=== PATIENT | female | born 1985 | race Caucasian/White ===

== ENCOUNTER 2018-04-01 11:26 | Outpatient (REF) | payer MEDICAID, SELFPAY ==
[2018-04-01 22:13] LABS: Cholesterol 107 mg/dL (50-200); HDL Cholesterol 56 mg/dL (40-60); LDL CHOLESTEROL 46 mg/dL (<100); TSH 2.54 uIU/mL (0.358-3.74)
[2018-04-01 22:15] LABS: Hemoglobin A1C 5.5 % (4.5-6.2)
[2018-04-01 22:53] LABS: Triglyceride < 25 mg/dL (30-150)
[2018-04-04 09:25] LABS: HIV-1/2 Ag & Ab Screen Negative (NEGAT)
[2018-04-04 09:27] LABS: Hepatitis C Ab w Rflx HCV PCR Negative (NEGAT)
[2018-04-04 12:10] LABS: Syphilis Serology (RPR) Negative (Negative)
[2018-04-05 13:48] LABS: Chlamydia Result Negative; GC Result Negative; Specimen Description vaginal
== END 2018-04-01 11:46 ==
LOC: NCHCN 11:26
PROVIDERS: PCP Nurse Practitioner Family; Visit Provider Nurse Practitioner Family
DX: E66.9 Obesity, unspecified (principal); Z11.3 Encounter for screening for infections with a predominantly sexual mode of transmission; Z11.4 Encounter for screening for human immunodeficiency virus [HIV]; Z13.1 Encounter for screening for diabetes mellitus; Z11.59 Encounter for screening for other viral diseases; Z13.220 Encounter for screening for lipoid disorders; Z13.29 Encounter for screening for other suspected endocrine disorder; Z00.00 Encounter for general adult medical examination without abnormal findings
CPT/HCPCS: 80061; 83721; 86803; 87389; 87491; 87591; 83036; 84443; 86592

== ENCOUNTER 2019-12-26 16:20 | Outpatient (REF) | payer MEDICAID, SELFPAY ==
--- NOTE | 2019-12-26 16:20 | PAPFT_PTH ---
PATIENT: Sonia Bradshaw LOC: [facility]#:[id number] AGE/SX: 34/F ROOM: RE12/26/[address]: Sonia Coello : 1985 BED: DIS: 12/26/2019 SPEC #: [id number] RECD: 12/27/19 13:03 STATUS: DIOR REJayden #: [id number] RAMIRO: 12/26/19 16:[address]: Sonia Cisse DEPT: [facility] Cytology RECD BY: Estephania Mccord Tissues: 1 - CX/ENDOCX FOR PAP SMEARS Procedures: PAP THIN PREP/[facility] Screening HPV DNA PROBE Comments: [id number] (CHLAMYDIA/GC)
[2019-12-28 15:51] LABS: Chlamydia Result Negative (Negative); GC Result Negative (Negative)
== END 2019-12-26 16:40 ==
LOC: NCHCN 16:20
PROVIDERS: PCP Nurse Practitioner Family; Visit Provider Nurse Practitioner Family
DX: R87.610 Atypical squamous cells of undetermined significance on cytologic smear of cervix (ASC-US) (principal); R87.810 Cervical high risk human papillomavirus (HPV) DNA test positive
CPT/HCPCS: 87491; 87591; 88142; 87624

== ENCOUNTER 2021-10-17 14:43 | Outpatient (REF) | payer MEDICAID, SELFPAY ==
[2021-10-17 20:23] LABS: HCT 38.7 % (36.0-46.0); HGB 12.8 g/dL (11.2-15.7); MCH 31.1 pg (27.0-33.0); MCHC 33.1 % (32.0-36.0); MCV 94 fL (80-95); MPV 11.9 fL (8.0-11.0); Platelet Count 219 10^3/uL (130-400); RBC 4.12 10^6/uL (3.93-5.22); RDW 11.8 % (11.7-14.6); RDW-SD 40.6 fL; WBC 5.56 10^3/uL (4.4-10.8)
[2021-10-17 20:30] LABS: Hemoglobin A1C 5.5 % (<5.7)
[2021-10-17 20:32] LABS: ALT 33 U/L (14-59); AST < 5 U/L (15-37); Albumin 4.1 g/dL (3.4-5.0); Alkaline Phosphatase 64 U/L (46-116); Anion Gap 8.3 mmol/L (3-11); BUN 13 mg/dL (7-18); Bilirubin, Total 0.7 mg/dL (0.2-1.0); CO2 26.7 mmol/L (21.0-32.0); CREATININE 0.9 mg/dL (0.55-1.02); Calcium 8.8 mg/dL (8.5-10.1); Chloride 105 mmol/L (98-107); Cholesterol 112 mg/dL (<200); Glucose 96 mg/dL (74-106); HDL Cholesterol 63 mg/dL (40-60); Potassium 4.2 mmol/L (3.5-5.1); Sodium 140 mmol/L (136-145); Total Protein 7.2 g/dL (6.4-8.2)
[2021-10-17 20:42] LABS: Calculated LDL 44 mg/dL (<100)
[2021-10-17 20:44] LABS: Triglyceride 28 mg/dL (<150)
== END 2021-10-17 14:44 | disposition home or self-care (01) ==
LOC: NCHCN 14:43
PROVIDERS: PCP Nurse Practitioner Family; Visit Provider Nurse Practitioner Family
DX: Z13.1 Encounter for screening for diabetes mellitus (principal); Z13.220 Encounter for screening for lipoid disorders; Z00.00 Encounter for general adult medical examination without abnormal findings
CPT/HCPCS: 80053; 80061; 85027; 83036

== ENCOUNTER 2023-06-22 14:00 | Outpatient (REF) | payer MEDICAID, SELFPAY ==
--- OUTSIDE RECORDS SUMMARY | 2023-06-22 14:02 | XMS_ITS | CCD ---
Author Name Unknown Address [address] [place] [address] [phone] Organization Unknown Address [address] [place] [address] [id number] Care Team Providers Care Accounting Clerk Name Role Phone August Attending Physician [phone] August Rounding (Secondary) Physician [phone] Vital Signs Unknown or Not Available. Allergies Unknown or Not Available. Procedures Unknown or Not Available. History of Immunizations Unknown or Not Available. Problems Unknown or Not Available. Results HEMOGLOBIN A1C* - Collect Da te/Time: 08/27/2021 17:22 Test Name Code Test Result Test Units Test Ref Rang e Hgb A1c 4548-4 5.9 % L=3.8 H=5.7 MEAN BLOOD GLUCOSE 57542-8 110 mg/dL THYROID TESTING CASCADE* - C ollect Date/Time: 08/27/2021 17:22 Test Name Code Test Result Test Units Test Ref Rang e TSH. 3014-8 2.344 uIU/mL L=0.360 H=3.74 0 CHLAMYDIA/GC THINPREP* - Col lect Date/Time: 08/27/2021 17:40 Test Name Code Test Result Test Units Test Ref Rang e Chlamydia Result Negative N/A Negative GC Result Negative N/A Negative PAP THINPREP HPV REGARDLESS OF DX* - Collect Date/Time: 08/27/2021 17:40 Test Name Code Test Result Test Units Test Ref Rang e Report (See below) N/A Active Medications Unknown or Not Available. Medications Administered During Visit Unknown or Not Available. Encounters Encounter Diagnosis Diagnosis Code Start Date Encounter for gynecological examination (general) (routine) without abnormal findings [id number] 08/27/2021 Social History Smoking Status Code Start Date End Date Never smoker [id number] Patient Decision Aids Unknown or Not Available. Discharge Instructions You were admitted to [facility] on 08/27/2021 16:20 with a principal diagnosis of Encounter for gynecological examination (general) (routine) without abnormal findings You had the following tests done:CHLAMYDIA/GC THINPREP*PAP THINPREP HPV REGARDLESS OF DX*HEMOGLOBIN A1C*THYROID TESTING CASCADE* You were discharged from [facility] on 08/27/2021 16:20 Should you have any questions prior to discharge, please contact a member of your healthcare team. If you have left the hospital and have any questions, please contact your primary care physician. Chief Complaint and Reason For Visit Unknown or Not Available. Function Status Unknown or Not Available. Plan of Care Unknown or Not Available. Referral/Transition of Care Unknown or Not Available.
[2023-06-22 14:47] LABS: Hemoglobin A1C 5.3 % (<5.7)
[2023-06-22 14:54] LABS: ALT 32 U/L (14-59); AST 19 U/L (15-37); Albumin 4.2 g/dL (3.4-5.0); Alkaline Phosphatase 58 U/L (46-116); BUN 14 mg/dL (7-18); Bilirubin, Total 0.9 mg/dL (0.2-1.0); CREATININE 0.9 mg/dL (0.55-1.02); Calcium 9.4 mg/dL (8.5-10.1); Chloride 103 mmol/L (98-107); Cholesterol 127 mg/dL (<200); Glucose 92 mg/dL (74-106); HDL Cholesterol 70 mg/dL (40-60); Potassium 3.9 mmol/L (3.5-5.1); Sodium 140 mmol/L (136-145); Total Protein 7.9 g/dL (6.4-8.2)
[2023-06-22 14:57] LABS: Triglyceride <25 mg/dL (<150)
[2023-06-22 15:14] LABS: LDL CHOLESTEROL 49 mg/dL (<100)
[2023-06-23 12:49] LABS: Chlamydia Result Negative (Negative); GC Result Negative (Negative)
== END 2023-06-22 14:01 | disposition home or self-care (01) ==
LOC: NCHCN 14:00
PROVIDERS: PCP Nurse Practitioner Family; Visit Provider Nurse Practitioner Family
DX: Z13.1 Encounter for screening for diabetes mellitus (principal); Z13.29 Encounter for screening for other suspected endocrine disorder; Z13.220 Encounter for screening for lipoid disorders; Z11.3 Encounter for screening for infections with a predominantly sexual mode of transmission
CPT/HCPCS: 80053; 80061; 83721; 87491; 87591; 83036; 84443